=== PATIENT | female | born 1980 | race Two or more races ===

== ENCOUNTER 2016-11-18 04:33 | Emergency (ER) | payer MEDICAID ==
[~2016-11-18] VITALS: Ht 157.5 cm; Wt 74.5 kg
[~2016-11-18 04:33] MED LIST: PRENAT PO
[2016-11-18 04:48] VITALS: Ht 157.5 cm; Wt 74.5 kg
[2016-11-18 07:07] LABS: URINE BLOOD (Dip) POC Negative (NEGATIVE)
[2016-11-18 07:45] LABS: INR 0.83; PROTIME 11.4 Sec (12.2-14.2); PT RATIO 0.9
[2016-11-18 07:47] LABS: POTASSIUM 4.2 mmol/L (3.5-5.1)
[2016-11-18 07:50] LABS: CREATININE 0.67 mg/dl (0.44-1.00); EOSINOPHILS # 0.1 10^3/ul (0.0-0.5); EOSINOPHILS % 1.4 % (0.0-7.0); HEMATOCRIT 40.6 % (37.0-47.0); HEMOGLOBIN 13.7 g/dl (12.0-16.0); LYMPHOCYTES # 1.9 10^3/ul (0.8-2.9); LYMPHOCYTES % 27.2 % (15.0-51.0); MEAN CORPUSCULAR HEMOGLOBIN 30.5 pg (29.0-33.0); MEAN CORPUSCULAR HGB CONC 33.8 g/dl (32.0-37.0); MEAN CORPUSCULAR VOLUME 90.1 fl (82.0-101.0); MEAN PLATELET VOLUME 7.8 fl (7.4-10.4); MONOCYTE # 0.5 10^3/ul (0.3-0.9); MONOCYTES % 6.8 % (0.0-11.0); NEUTROPHIL # 4.6 10^3/ul (1.6-7.5); NEUTROPHILS % 64.6 % (39.0-77.0); PLATELET COUNT 340 10^3/UL (140-440); RED BLOOD COUNT 4.51 10^6/ul (4.20-5.40); RED CELL DISTRIBUTION WIDTH 13.6 % (11.5-14.5); UNCORRECTED WBC 7.1 10^3/ul (4.8-10.8); WHITE BLOOD COUNT 7.1 10^3/ul (4.8-10.8)
[2016-11-18 07:51] LABS: CALCIUM 9.6 mg/dl (8.4-10.2); CONDITION 1
--- NOTE | 2016-11-18 08:28 | RADRPT ---
PROCEDURE: US Pelvis CLINICAL INDICATION: Pelvic pain. TECHNIQUE: Sonographic evaluation of the pelvis was performed utilizing both transabdominal and tr ansvaginal technique. Curved array transabdominal transducer technique as well as a high frequency endovaginal probe was utilized. Images were reviewed on the high-resolution PACS workstation. COMPARISON: Pelvic ultrasound dated 05/09/2015 FINDINGS: The uterus is mildly enlarged, measuring 10.9 x 5.2 x 7.6 cm in dimension. The uterus is anteverted in normal position. The endometrium is thin and homogeneous with small endometrial free fluid. The right ovary measures 2.3 x 1.3 x 1.8 cm in dimension. The left ovary measures 3.0 x 1.8 x 2.0 c m in dimension. The ovaries are symmetric in size, echogenicity, and morphology. Normal Doppler fl ow is demonstrated to both ovaries. There are no adnexal masses. There is no significant free flui d in the pelvis. IMPRESSION: Small free fluid in the endometrium. Otherwise, unremarkable pelvic ultrasound. RPTAT: HH .Blanca Edward MD, Date Time Electronically viewed and signed by .Blanca Edward MD, on 11/18/2016 08:27 .G/
[2016-11-18] MEDS ORDERED: CIPR500T4 PO (09:11)
--- NOTE | 2016-11-18 09:16 | ERD ---
ER Documentation Chief Complaint Date/Time DATE: 11/18/16 TIME: 09:14 Chief Complaint DIZZINESS, FEVER, VAGINAL DISCHARGE, LANDRY, S/P DELIVERY 10/25/16 HPI 36-year-old female presents to the emergency department approximately 3 weeks status post a vaginal delivery. 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 She then noticed some nonspecific vaginal discharge which she says was foul-smelling. Today she passed a large clot of blood and came to the emergency department for evaluation. After passing the clot, the bleeding is stopped. She reports a low-grade fever but no vomiting. ROS All systems reviewed and are negative except as per history of present illness. Medications Home Meds Active Scripts Ciprofloxacin Hcl* (Ciprofloxacin Hcl*) 500 Mg Tablet, 500 MG PO BID for 7 Days , TAB Prov:CARLY GLEZ 11/18/16 Reported Medications Multivit/Min/Fol Ac/Iron/Pren* ( S*) 1 Tab Tab, 1 TAB PO DAILY, TAB 10/24/16 Allergies Allergies: Coded Allergies: Penicillins (Verified Allergy, Mild, rash, 10/24/16) PMhx/Soc History of Surgery: Yes () Anesthesia Reaction: No Hx Neurological Disorder: No Hx Respiratory Disorders: No Hx Cardiac Disorders: No Hx Psychiatric Problems: No Hx Miscellaneous Medical Probl: No Hx Alcohol Use: No Hx Substance Use: No Hx Tobacco Use: No FmHx Noncontributory for chief complaint Physical Exam Vitals Vital Signs Date Time Temp Pulse Resp B/P Pulse Ox O2 Delivery O2 Flow Rate FiO2 11/18/16 04:48 98.4 84 17 121/67 98 Physical Exam GENERAL: The patient is well developed and appropriate for usual state of health in no apparent distress HEENT: Pupils equal, round, and reactive to light. EOMI. There is no scleral icterus. NECK: C-spine is soft and supple, there is no meningismus. There is no cervical lymphadenopathy. LUNGS: Clear to auscultation bilaterally. There are no rales, wheezes or rhonchi. HEART: Regular rate and rhythm, no murmurs, clicks, rubs or gallops. ABDOMEN: Soft, non-tender, non-distended. There are bowel sounds in all four quadrants. No rebound or guarding. No obvious CVA tenderness rebound or guarding. Pelvis is not tender EXTREMITIES: There is no peripheral cyanosis or edema. No focal swelling or erythema. NEURO: The patient moves all four extremities with 5/5 strength. Cranial nerves II - XII are intact. Normal gait. Alert and oriented SKIN: There is no apparent rash or petechiae. HEME/LYMPHATIC: There is no evidence of excessive bruising or lymphedema. PSYCHIATRIC: The patient does not appear anxious or depressed. Result Diagram: 11/18/16 0655 11/18/16 0655 Results 24 hrs Laboratory Tests Test 11/18/16 06:55 11/18/16 07:08 Activated Partial Thromboplast Time 28.0Sec Anion Gap 18 Basophils # 0.010^3/ul Basophils % 0.0% Blood Urea Nitrogen 21mg/dl Calcium Level 9.6mg/dl Carbon Dioxide Level 27mmol/L Chloride Level 100mmol/L Creatinine 0.67mg/dl Eosinophils # 0.110^3/ul Eosinophils % 1.4% Glucose Level 80mg/dl Hematocrit 40.6% Hemoglobin 13.7g/dl INR International Normalized Ratio 0.83 Lymphocytes # 1.910^3/ul Lymphocytes % 27.2% Mean Corpuscular Hemoglobin 30.5pg Mean Corpuscular Hemoglobin Concent 33.8g/dl Mean Corpuscular Volume 90.1fl Mean Platelet Volume 7.8fl Monocytes # 0.510^3/ul Monocytes % 6.8% Neutrophils # 4.610^3/ul Neutrophils % 64.6% Nucleated Red Blood Cells # 0.010^3/ul Nucleated Red Blood Cells % 0.0/100WBC Platelet Count 38540^3/UL Potassium Level 4.2mmol/L Prothrombin Time 11.4Sec Prothrombin Time Ratio 0.9 Red Blood Count 4.5110^6/ul Red Cell Distribution Width 13.6% Sodium Level 141mmol/L White Blood Count 7.110^3/ul Bedside Urine Blood Negative Bedside Urine Glucose (UA) Negative Bedside Urine Ketones (LAB) Negative Bedside Urine Leukocyte Esterase (L Trace Bedside Urine Nitrite (LAB) Negative Bedside Urine Protein (LAB) Negative Bedside Urine pH (LAB) 5.5 Procedures/MDM Patient was taken to a room, seen and evaluated. Comfort measures were initiated. Diagnostic tests were ordered and reviewed. RADIOLOGY: reviewed with the radiologist REEVALUATION: Patient remained comfortable in appearance MEDICAL DECISION MAKING: This is a 36-year-old female who presents with postdelivery bleeding. Given the history that she is giving of the low-grade fever, the foul-smelling and the ultimate passage of a large clot after a number of weeks of continued bleeding post delivery, I suspect she has a mild endometritis. I will be treating with antibiotics. At this time, her hemoglobin is stable and she does not require significant transfusion. She has no evidence of ongoing bleeding and no evidence of retained products of conception on her ultrasound. 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 Return for any problems or concerns. CARLY GLEZ Nov 18, 2016 09:16
[2016-11-18 09:45] VITALS: BP 118/65; PULSE 78; RESP 16
== END 2016-11-18 09:47 | disposition home or self-care (01) ==
LOC: FTE 04:33
DX: N80.9 Endometriosis, unspecified (principal); R10.2 Pelvic and perineal pain
CPT/HCPCS: 36415; 76830; 76856; 80048; 81003; 85025; 85610; 85730; Z7502

== ENCOUNTER 2016-11-24 23:05 | Emergency (ER) | END 2016-11-25 02:32 | disposition home or self-care (01) | DX: N93.9 Abnormal uterine and vaginal bleeding, unspecified (principal) ==

== ENCOUNTER 2018-11-04 14:27 | Emergency (ER) | payer MEDICAID ==
[~2018-11-04] VITALS: Ht 154.9 cm; Wt 77.3 kg
[~2018-11-04 14:27] MED LIST changes: +CIPR500T4 PO
[2018-11-04 14:30] VITALS: Ht 154.9 cm; Wt 77.3 kg
[2018-11-04] MEDS ORDERED: IBUPROFEN 600 MG TAB PO ONE (15:30)
[2018-11-04] MEDS ORDERED: IBUP-1542 PO (15:56)
[2018-11-04] MEDS ORDERED: BENZ-6 PO (15:56)
[2018-11-04] MEDS ORDERED: D-ME473S2 PO (15:57)
--- NOTE | 2018-11-04 16:16 | ERD ---
ER Documentation Chief Complaint Chief Complaint Cough, congestion, CWP, fever X 2 days HPI Patient is a 38-year-old female presents ER for concerns of cough, nasal congestion, chest wall pain and fever times 2 days. Patient reports intermittent low-grade temperature to 100 101 Fahrenheit. Patient states her cough is extremely dry in nature and is causing her to lose her voice. Patient states she has chest pain when coughing only. Patient denies any pain at rest. Patient denies any radiating pain. Patient denies shortness of breath. Patient denies any hemoptysis, leg swelling, recent air travel, history of DVT/PE. Patient states his been taking [id number] medication with minimal alleviation of symptoms. Patient denies any neck pain, neck stiffness, abdominal pain, vomiting, diarrhea. Patient has numerous sick contacts at home. ROS All systems reviewed and are negative except as per history of present illness. Medications Home Meds Active Scripts Dextromethorphan Hb-Promethazine Hcl* (Promethazine DM* Syrup) 473 Ml Syrup, 5 ML PO Q6 PRN for COUGH, #4 OZ Prov:JUHI JUNE PA-C 11/04/18 Benzonatate* (Tessalon Perle*) 100 Mg Capsule, 100 MG PO Q8H PRN for COUGH, #20 CAP Prov:JUHI JUNE PA-C 11/04/18 Ibuprofen* (Motrin*) 600 Mg Tab, 600 MG PO Q6, #30 TAB Prov:JUHI JUNE PA-C 11/04/18 Ciprofloxacin Hcl* (Ciprofloxacin Hcl*) 500 Mg Tablet, 500 MG PO BID for 7 Days, TAB Prov:CARLY GLEZ 11/18/16 Reported Medications Multivit/Min/Fol Ac/Iron/Pren* ( S*) 1 Tab Tab, 1 TAB PO DAILY, TAB 10/24/16 Allergies Allergies: Coded Allergies: Penicillins (Verified Allergy, Mild, rash, 11/04/18) PMhx/Soc Medical and Surgical Hx: pt denies Medical Hx History of Surgery: Yes () Anesthesia Reaction: No Hx Neurological Disorder: No Hx Respiratory Disorders: No Hx Cardiac Disorders: No Hx Psychiatric Problems: No Hx Miscellaneous Medical Probl: No Hx Alcohol Use: No Hx Substance Use: No Hx Tobacco Use: No Smoking Status: Never smoker FmHx Family History: No diabetes Physical Exam Vitals Vital Signs Date Temp Pulse Resp B/P (MAP) Pulse Ox O2 O2 Flow FiO2 Time Delivery Rate 11/04/18 100.4 94 18 120/67 99 14:30 (84) Physical Exam GENERAL: Well-developed, well-nourished female. Appears in no acute distress. Speaking full sentences. HEAD: Normocephalic, atraumatic. No deformities or ecchymosis. EYE: Pupils equal, round, and reactive to light. EOMs intact. No conjunctival erythema. No eye discharge. ENT: External ear without any masses or tenderness. Auditory canals clear bilaterally. TM visualized bilaterally, non-erythematous, non-bulging. Nasal mucosa pink with no discharge. Oropharynx is pink without any tonsillar erythema or exudates. No uvula deviation. No kissing tonsils. Hoarseness of voice noted. No drooling. No trismus. NECK: Supple. No meningismus. Normal ROM of the neck. CHEST: anterior chest wall is tender to palpation. Pain is reproducible LUNG: Clear to auscultation bilaterally. No rhonchi, wheezing, rales or coarse breath sounds. HEART: Regular rate and rhythm. No murmurs, rubs or gallops. EXTREMITES: Equal pulses bilaterally. No peripheral clubbing, cyanosis or edema. No unilateral leg swelling. NEUROLOGIC: Alert and oriented to person, place and time. Moving all four extremities. 5/5 strength in all extremities. Normal speech. Steady gait SKIN: Normal color. Warm and dry. No rashes or lesions. Results 24 hrs Current Medications Medications Dose Sig/Dorina Start Time Status Last (Trade) Ordered Route PRN Stop Time Admin Dose Reason Admin Ibuprofen 600 mg ONCE ONCE 11/04/18 DC 11/04/18 (Motrin) PO 15:30 11/04/18 15:39 15:31 Procedures/MDM ED COURSE: The patient was stable throughout ED course. I kept the patient and/or family informed of laboratory and diagnostic imaging results throughout the ED course. DIAGNOSTIC IMAGING: Read by radiologist. Patient: LINDSAY LAROSE : 1980 Age: 38 Sex: F MR #: [id number] DOS: 11/04/18 1512 Ordering MD: JUHI JUNE PA-C Location: [facility] Room/Bed: PROCEDURE: XR Chest. CLINICAL INDICATION: Shortness of breath. Cough and fever. TECHNIQUE: Single AP portable chest. COMPARISON: 12/20/2013 Chest x-ray FINDINGS: The cardiomediastinal silhouette is within normal limits of size. The lungs are clear without pleural effusion or focal consolidation. Atherosclerotic calcification of the aorta.No pneumothorax. The osseous structures and soft t issues are unremarkable. IMPRESSION: 1. No evidence for active cardiopulmonary disease. RPTAT:AAJJ Physician Joseph Date Time Electronically viewed and signed by Physician Joseph on 11/04/2018 15:50 BEATRICE/ CC: JUHI JUNE PA-C [id number] PROCEDURES: None. MEDICATIONS GIVEN: Ibuprofen Patient tolerated medication well with no adverse reactions. Patient reported improvement in pain. MEDICAL DECISION MAKING: This is a 38-year-old female presents ER for concerns of cough, voice hoarseness, congestion, chest wall pain times 2 days. Vital signs were reviewed. Patient was noted to have temperature of 100.4 Fahrenheit. Patient was given ibuprofen, temperature noted to be downtrending.. Patient was not hypoxic. Chest x-ray was unremarkable.. Patient likely has a influenza-like illness versus viral URI. Low suspicion for ACS, aortic dissection, PE, pneumothorax, pneumonia, meningitis, sinusitis, otitis externa, acute otitis media, strep pharyngitis, epiglottitis or peritonsillar abscess. Patient was nontoxic, [id number] prior to discharge. PRESCRIPTIONS: ibuprofen, promethazine DM cough syrup, Tessalon Perles DISCHARGE: At this time, patient is stable for discharge and outpatient management. Supportive therapies such as OTC throat lozenges, salt water gurgles, popsicles and jello discussed. I have instructed the patient to follow-up with his/her primary care physician in 1-2 days. I have instructed the patient to promptly return to the ER for any new or worsening symptoms including increased pain, swelling, fever, nausea, vomiting, weakness or difficulty breathing. The patient and/or family expressed understanding of and agreement with this plan. All questions were answered. Home care instructions were provided. Disclaimer: Inadvertent spelling and grammatical errors are likely due to EHR/dictation software use and do not reflect on the overall quality of patient care. Also, please note that the electronic time recorded on this note does not necessarily reflect the actual time of the patient encounter. Departure Diagnosis: Primary Impression: Influenza-like illness Additional Impression: Upper respiratory infection URI type: unspecified URI Qualified Codes: J06.9 - Acute upper respiratory infection, unspecified Condition: Stable Patient Instructions: Uri, Viral, No Abx (Adult) Referrals: [facility] YOU HAVE RECEIVED A MEDICAL SCREENING EXAM AND THE RESULTS INDICATE THAT YOU DO NOT HAVE A CONDITION THAT REQUIRES URGENT TREATMENT IN THE EMERGENCY DEPARTMENT. FURTHER EVALUATION AND TREATMENT OF YOUR CONDITION CAN WAIT UNTIL YOU ARE SEEN IN YOUR DOCTORS OFFICE WITHIN THE NEXT 1-2 DAYS. IT IS YOUR RESPONSIBILITY TO MAKE AN APPOINTMENT FOR FOLOW-UP CARE. IF YOU HAVE A PRIMARY DOCTOR --you should call your primary doctor and schedule an appointment IF YOU DO NOT HAVE A PRIMARY DOCTOR YOU CAN CALL OUR PHYSICIAN REFERRAL HOTLINE AT IF YOU CAN NOT AFFORD TO SEE A PHYSICIAN YOU CAN CHOSE FROM THE FOLLOWING [facility] [address] [facility]. [facility] [address] [facility]. [facility] [address] [facility] [facility] [address] [facility] [facility] [address] [facility]. [facility]. [address] [facility]. [facility] YOU HAVE RECEIVED A MEDICAL SCREENING EXAM AND THE RESULTS INDICATE THAT YOU DO NOT HAVE A CONDITION THAT REQUIRES URGENT TREATMENT IN THE EMERGENCY DEPARTMENT. FURTHER EVALUATION AND TREATMENT OF YOUR CONDITION CAN WAIT UNTIL YOU ARE SEEN IN YOUR DOCTORS OFFICE WITHIN THE NEXT 1-2 DAYS. IT IS YOUR RESPONSIBILITY TO MAKE AN APPOINTMENT FOR FOLOW-UP CARE. IF YOU HAVE A PRIMARY DOCTOR --you should call your primary doctor and schedule and appointment IF YOU DO NOT HAVE A PRIMARY DOCTOR YOU CAN CALL OUR PHYSICIAN REFERRAL HOTLINE AT . IF YOU CAN NOT AFFORD TO SEE A PHYSICIAN YOU CAN CHOSE FROM THE FOLLOWING [facility] INSTITUTIONS: [facility] [address] [place] [address] [facility] [address] [place] [address] [facility] [address] [place] [address] Additional Instructions: Call your primary care doctor TOMORROW for an appointment during the next 1-2 days.See the doctor sooner or return here if your condition worsens before your appointment time. JUHI JUNE PA-C Nov 04, 2018 16:16
[2018-11-04 16:28] VITALS: BP 117/67; PULSE 83; RESP 18
== END 2018-11-04 16:25 | disposition home or self-care (01) ==
LOC: FTE 14:27
DX: J11.1 Influenza due to unidentified influenza virus with other respiratory manifestations (principal)
CPT/HCPCS: 71045; Z7502; Z7610